=== PATIENT | male | born 1980 | race Caucasian/White ===

== ENCOUNTER 2018-08-20 09:35 | Observation (INO) | payer OTHER ==
[~2018-08-20] VITALS: Ht 182.9 cm; Wt 112.8 kg
[~2018-08-20 09:35] MED LIST: ASPI-496 PO; FERR-46 PO; PANT40TA3 PO; RANI150T23 PO
[2018-08-20] MEDS ORDERED: LACTATED RINGERS 1,000 ML IV SCH (10:02)
[2018-08-20 10:07] VITALS: BP 133/88
[2018-08-20] MEDS ORDERED: FENTANYL PF 250 MCG/5ML ONE ×2 (12:16→14:04)
[2018-08-20] MEDS ORDERED: MIDAZOLAM 1 MG/ML, 2ML ONE (12:16)
[2018-08-20] MEDS ORDERED: SCOPOLAMINE PATCH, 1.5MG PATCH.TD72 TD ONE (12:20)
[2018-08-20] MEDS ORDERED: BUPIVACAINE/PF-EPI 0.5% 1:200K ONE (12:22)
[2018-08-20] MEDS ORDERED: DIAZEPAM 5 MG/ML, 10ML VIAL IVPush PRN (13:30)
[2018-08-20] MEDS ORDERED: hydrALAzine 20 MG/ML, 1ML IV PRN (13:30)
[2018-08-20] MEDS ORDERED: ACETAMINOPHEN 325 MG TABLET PO PRN (13:30)
[2018-08-20] MEDS ORDERED: PROMETHAZINE 25 MG/ML, 1ML IV PRN (13:30)
[2018-08-20] MEDS ORDERED: LABETALOL 20 MG/4 ML IV PRN (13:30)
[2018-08-20] MEDS ORDERED: OXYcodone 5 MG/5 ML ORAL.SOL UDC PO PRN (13:30)
[2018-08-20] MEDS ORDERED: ALBUTEROL SULFATE 2.5 MG/3 ML NPPB PRN (13:30)
[2018-08-20] MEDS ORDERED: MEPERIDINE/PF 25MG/0.5ML IVPush PRN (13:30)
[2018-08-20] MEDS ORDERED: KETOROLAC 30 MG/1 ML IV PRN (13:30)
[2018-08-20] MEDS ORDERED: HYDROmorphone 2 MG/ML, 1ML ONE (14:53)
[2018-08-20] MEDS: HYDROmorphone 2 MG/ML, 1ML IVPush PRN ×4 (14:55→15:20)
[2018-08-20] MEDS ORDERED: FENTANYL PF 100 MCG/2ML ONE (15:12)
[2018-08-20] MEDS: FENTANYL PF 100 MCG/2ML IV PRN ×2 (15:14→15:36)
[2018-08-20] MEDS ORDERED: KETOROLAC 30 MG/1 ML ONE (15:25)
[2018-08-20] MEDS ORDERED: MEPERIDINE/PF 25MG/ML,1ML ONE (15:45)
[2018-08-20] MEDS ORDERED: NEOSTIGMINE 1 MG/ML, 10ML ONE (15:57)
[2018-08-20] MEDS ORDERED: CEFAZOLIN 1,000 MG ONE (15:57)
[2018-08-20] MEDS ORDERED: ONDANSETRON 2MG/ML, 2ML ONE (15:57)
[2018-08-20] MEDS ORDERED: ROCURONIUM 10MG/ML,5ML ONE (15:57)
[2018-08-20] MEDS ORDERED: GLYCOPYRROLATE 0.2MG/1ML, 5ML ONE (15:57)
[2018-08-20] MEDS ORDERED: PROPOFOL 10 MG/ML, 20ML ONE (15:57)
[2018-08-20] MEDS: LACTATED RINGERS 1,000 ML IV SCH (16:55)
[2018-08-20] MEDS ORDERED: HYDROmorphone 2 MG/ML, 1ML IV PRN (17:00)
[2018-08-20] MEDS ORDERED: ONDANSETRON 2MG/ML, 2ML IVPush PRN (17:00)
[2018-08-20] MEDS: PANTOPRAZOLE 40 MG IV IVPush SCH (17:05)
[2018-08-20 18:59] VITALS: BP 115/69
[2018-08-20] MEDS: MORPHINE SULFATE 4 MG/ML, 1ML IVPush PRN ×4 (20:56→23:40)
[2018-08-21 00:32] VITALS: BP 110/74
[2018-08-21] MEDS: LACTATED RINGERS 1,000 ML IV SCH ×2 (01:00→08:10)
[2018-08-21 06:03] LABS: BASOPHILS # (AUTO) 0.01 x10^3/uL (0-0.1); BASOPHILS % (AUTO) 0 % (0-1); EOSINOPHILS # (AUTO) 0.02 x10^3/uL (0-0.4); EOSINOPHILS % (AUTO) 0 % (1-7); LYMPHOCYTES # (AUTO) 1.52 x10^3/uL (1-3.4); LYMPHOCYTES % (AUTO) 15 % (22-44); MD NO; MEAN CORPUSCULAR HEMOGLOBIN 30.4 pg (27.5-34.5); MEAN CORPUSCULAR HGB CONC 34.5 g/dL (33.2-36.2); MEAN CORPUSCULAR VOLUME 88.2 fL (81-97); MEAN PLATELET VOLUME 9.1 fL (7.4-10.4); MONOCYTES # (AUTO) 0.98 x10^3/uL (0.2-0.8); MONOCYTES % (AUTO) 10 % (2-9); NEUTROPHILS # (AUTO) 7.73 x10^3/uL (1.8-6.8); NEUTROPHILS % (AUTO) 75 % (42-75); PLATELET COUNT 278 x10^3/uL (130-400); RED BLOOD COUNT 5.09 x10^6/uL (4.38-5.82); RED CELL DISTRIBUTION WIDTH 13.4 % (9.4-14.8)
[2018-08-21] MEDS: PANTOPRAZOLE 40 MG IV IVPush SCH (06:05)
[2018-08-21] MEDS ORDERED: ENOXAPARIN 40 MG/0.4 ML SQ SCH (08:00)
[2018-08-21 08:20] VITALS: BP 130/82
[2018-08-21] MEDS: MORPHINE SULFATE 4 MG/ML, 1ML IVPush PRN (08:54)
[2018-08-21] MEDS ORDERED: HYDR-3240 PO (09:05)
== END 2018-08-21 12:25 | disposition home or self-care (01) ==
LOC: OUT 09:35 → 4NOR 16:12 → OUT 23:31 → DCLOUNGE 08-21 12:04
PROVIDERS: ADMIT Surgery; ATTEND Surgery
DX: K44.9 Diaphragmatic hernia without obstruction or gangrene (principal); K21.9 Gastro-esophageal reflux disease without esophagitis
CPT/HCPCS: 36415; 43282; 85025; 96372; 96374; 96375; 96376; C1781; C9113; G0378; J0690; J1170; J1650; J1885; J2175; J2250; J2405; J2704; J2710; J3010; J3490; J7120

== ENCOUNTER → 2019-04-08 | Outpatient (CLI) | payer OTHER ==
[~2019-04-08] MED LIST changes: +HYDR-3240 PO; +OMNIPAQUE 350 MG/ML, 100ML BOTTLE ONE; +RANI-467 PO; -RANI150T23 PO
== END | disposition home or self-care (01) ==
LOC: RAD 09:13
PROVIDERS: ATTEND Surgery
DX: K76.0 Fatty (change of) liver, not elsewhere classified (principal); K21.9 Gastro-esophageal reflux disease without esophagitis; D53.9 Nutritional anemia, unspecified; K44.9 Diaphragmatic hernia without obstruction or gangrene; I82.409 Acute embolism and thrombosis of unspecified deep veins of unspecified lower extremity; Z87.891 Personal history of nicotine dependence; Z86.73 Personal history of transient ischemic attack (TIA), and cerebral infarction without residual deficits
CPT/HCPCS: 74177; Q9967

== ENCOUNTER → 2019-04-16 | Outpatient (CLI) | payer OTHER ==
[~2019-04-16] MED LIST changes: -OMNIPAQUE 350 MG/ML, 100ML BOTTLE ONE; +SINCALIDE (KINEVAC) 5 MCG ONE
== END | disposition home or self-care (01) ==
LOC: RAD 10:28
PROVIDERS: ATTEND Surgery
DX: K21.9 Gastro-esophageal reflux disease without esophagitis (principal); Z87.891 Personal history of nicotine dependence; F10.20 Alcohol dependence, uncomplicated
CPT/HCPCS: 78227; A9537; J2805